=== PATIENT | male | born 2000 | race Caucasian/White ===

== ENCOUNTER 2024-06-28 15:38 | Emergency (ER) | payer SELFPAY ==
[2024-06-28 15:52] VITALS: BP 123/65
[2024-06-28 16:17] LABS: % Basophils 0.4 % (0-2); % Eosinophils 0.8 % (0-6); % Immature Granulocytes 0.3 % (0-0.5); % Lymphocytes 17.6 % (20.5-51.1); % Monocytes 5.5 % (1.7-9.3); % Neutrophils 75.4 % (42.2-75.2); Absolute Eosinophils 0.1 10^3/uL (0-0.7); Absolute Lymphocytes 1.8 10^3/uL (1.2-3.4); Absolute Monocytes 0.6 10^3/uL (0.1-0.6); Absolute Neutrophils 7.8 10^3/uL (1.4-6.5); Hematocrit 43.7 % (39.0-52.0); Hemoglobin 15.4 g/dL (13.0-18.0); Mean Corp Hgb Conc. 35.2 g/dL (33.0-37.0); Mean Corpuscular Hgb 30.7 pg (27.0-31.0); Mean Corpuscular Volume 87.2 fL (80.0-94.0); Mean Platelet Volume 10.8 fL (7.4-10.4); Nucleated Red Blood Cells % 0 % (-); Platelet Count 215 10^3/uL (130-400); Red Blood Cell Count 5.01 10^6/uL (4.70-6.10); White Blood Cell Count 10.3 10^3/uL (4.8-10.8)
[2024-06-28 16:36] LABS: ALT (SGPT) 19 U/L (0-50); AST (SGOT) 23 U/L (17-59); Albumin 4.7 g/dl (3.5-5.0); Alkaline Phosphatase 57 U/L (38-126); Blood Urea Nitrogen 12 mg/dl (9-20); Calcium 9.7 mg/dl (8.4-10.2); Carbon Dioxide 23 mmol/L (22-30); Chloride 103 mmol/L (98-107); Glucose 116 mg/dl (70-99); Sodium 140 mmol/L (135-145); Total Bilirubin 0.5 mg/dl (0.2-1.3); Total Protein 7.7 g/dl (6.3-8.2); eGFR > 60.00
--- NOTE | 2024-06-28 17:47 | ED.GENMED ---
History of Present Illness
General
Chief Complaint: Visual Problem
Time Seen by Provider: 06/28/24 17:47
History of Present Illness
History of Present Illness:
TIME OF INITIAL ENCOUNTER: 5:45 PM
HPI:
Patient is had intermittent vision changes over the past 3 weeks. He reports loss of vision to both eyes for either a split-second up to about 5 seconds that have been occurring intermittently. His brother spoke to an multimedia teacher in [place] who
recommended he go to the ER for evaluation of a stroke. There has been no other stroke symptoms.
EXAM:
GENERAL: Well appearing in no distress, elevated BMI
HEENT: Moist oral mucosa
CARDIOVASCULAR: No murmurs, normal heart rate, regular rhythm, No chest wall tenderness
PULMONARY: No respiratory distress, breath sounds are clear and equal
ABDOMEN: Soft with no peritoneal signs, no tenderness
NEUROLOGIC: Excellent strength all extremities, no coordination deficits, there are no field cuts on exam, pupils are equally reactive, he has no symptoms currently
PSYCHIATRIC: Appropriate mental status, normal insight and judgement
EXTREMITIES: Nontender, no edema, moves all extremities equally
SKIN: No rash, no lesions
NUMBER AND COMPLEXITY OF PROBLEMS ADDRESSED AT THE ENCOUNTER
� Chronic conditions affecting care: Anxiety/depression, bipolar, ADHD
� Acute Exacerbation and/or Progression of Chronic Illness: This is an acute problem
� Differential Diagnosis includes: Possibly psychiatric in nature, amaurosis fugax unlikely as this is bilateral, there are no field cuts on exam to suggest CVA
AMOUNT AND/OR COMPLEXITY OF DATA TO BE REVIEWED AND ANALYZED
� I performed an independent evaluation of and my interpretation is:
EKG: Sinus 84, no acute ST abnormality
CT: I personally viewed CT imaging
X-rays:
Laboratory Studies: CBC is unremarkable, chemistries are unremarkable
Other:
� Review of other/old records: I reviewed records, the patient was a 89 in 2021
� Clinical information was obtained by an independent historian: I spoke to brother at bedside
� Prescriptions/Medications Considered but not given:
� Further testing considered but not performed:
RISK OF COMPLICATIONS AND/OR MORBIDITY OR MORTALITY OF PATIENT MANAGEMENT
� Social determinants of health affecting care: Lives at home
� Discussion with other providers: I discussed case with Dr. Mas, on-call neurology who did not feel that this is neurologic in nature
� Escalation of care including admission/observation vs risk of discharge considered: No clear indication for admission to the hospital
ANY OTHER UPDATES:
7:40 PM: I reassessed patient with an unremarkable ED workup. Neurology did not feel symptoms were neurologic in nature. He is in a sinus rhythm. He is also to follow-up with optometry as well.
Past History
Past History
ED Past Medical History: Psychiatric (ADHD, anxiety, depression); Negative Asthma, HTN, Hypercholesterolemia or NIDDM
ED Past Surgical History: None
Social History
Tobacco: Non-smoker
Alcohol: None
Drug: None
Personal: Single
Living: with family
Phy Exam
Physical Exam
Physical Exam:
See HPI
Course
Orders/Labs/Results
Orders:
Orders
06/28/24 15:57
CT Head W/o Iv Contrast Urgent
Comment: hx of migraines
Reason For Exam: visual disturbances for couple wks
06/28/24 16:09
Complete Blood Count/With Diff Urgent
Comprehensive Metabolic Panel Urgent
06/28/24 17:57
Electrocardiogram (*1) Urgent
Reason for Study: TIA/Stroke
EKG- Treatment ONCE
Abnormal Lab Results
06/28/24
16:09
MPV 10.8 H fL
(7.4-10.4)
Absolute Neuts (auto) 7.8 H 10^3/uL
(1.4-6.5)
Neutrophils % 75.4 H %
(42.2-75.2)
Lymphocytes % 17.6 L %
(20.5-51.1)
Glucose 116 H mg/dl
(70-99)
06/28/24 16:09
06/28/24 16:09
Vital Signs
Initial and Last Documented VS:
Initial Vital Signs
Temp Pulse Resp BP Pulse Ox
98.3 F 86 16 123/65 98
06/28/24 15:52 06/28/24 15:52 06/28/24 15:52 06/28/24 15:52 06/28/24 15:52
Last Documented Vital Signs
Temp Pulse Resp BP Pulse Ox
98.3 F 85 16 123/65 98
06/28/24 15:52 06/28/24 18:08 06/28/24 18:08 06/28/24 15:52 06/28/24 18:08
*Critical Care Note
Total Time (30-74mins, 75-104mins- exclusive of procedures): Not Applicable
ED Attending Note
-
Portions of this chart may have been created with voice recognition software.� Occasional wrong word or��sound alike� substitutions may have occurred due to the inherent limitations of voice recognition software.
Discharge Plan
Departure
Patient Disposition: Home (Routine Discharge)
Date of Disposition: 06/28/24
Time of Disposition: 19:42
Patient with high blood pressure during this ER visit?: Yes
Discharge Problem:
Alteration in vision
Instructions: BLOOD PRESSURE
Prescriptions:
No Action
No Current Medications
0
Referrals:
Carolina Mas MD [Active] - Next open appointment
NONE,* [Family Provider] -
Activity Restrictions/Additional Instructions:
CAT scan of the brain showed no abnormality, blood work is normal. EKG shows a normal sinus rhythm. I have given you the contact information for a local neurologist but the neurologist that I spoke to did not feel that your symptoms were
neurologic in nature. Follow-up with the multimedia teacher in [place].
Interventions
Interventions:
*Risk Screen - Suicide Last Done: 06/28/24 15:52
*General Assessment Last Done: 06/28/24 18:09
*Neglect/Abuse Screening Last Done: 06/28/24 15:52
ED- Fall Risk Assessment Last Done: 06/28/24 18:09
*ED COVID-19 Vaccine History Last Done: 06/28/24 18:09
ED- Neurological Assessment Last Done: 06/28/24 18:09
ED-EENT Assessment Last Done: 06/28/24 18:09
Discharge Date and Time
Print Language: [id number]
== END 2024-06-28 20:00 | disposition home or self-care (01) ==
LOC: EMR 15:38
PROVIDERS: EMERGENCY PHYSICIAN Emergency Medicine
DX: H53.9 Unspecified visual disturbance (principal); R03.0 Elevated blood-pressure reading, without diagnosis of hypertension
CPT/HCPCS: 99285; 70450; 80053; 85025; 93005